=== PATIENT | female | born 1960 | race African-American/Black ===

== ENCOUNTER 2024-04-26 11:59 | Emergency (ER) | payer SELFPAY ==
[~2024-04-26] VITALS: Ht 162.6 cm; Wt 95.3 kg
[2024-04-26 12:08] VITALS: O2SAT 98
[2024-04-26] MEDS: HYDROCODONE/ACETAMINOPHEN 5/325MG TABLET PO ONE (13:16)
[2024-04-26] MEDS ORDERED: NAP5EC MT (14:47)
[2024-04-26 15:09] VITALS: BP 138/84; PULSE 68; RESP 16; TEMP 36.66960; O2SAT 98
== END 2024-04-26 15:10 | disposition home or self-care (01) ==
LOC: ER 13:01
DX: R51.9 Headache, unspecified (principal); R07.89 Other chest pain; M54.2 Cervicalgia; K59.00 Constipation, unspecified; Z87.440 Personal history of urinary (tract) infections; V49.49XA Driver injured in collision with other motor vehicles in traffic accident, initial encounter; Y93.89 Activity, other specified; Y92.89 Other specified places as the place of occurrence of the external cause; Y99.8 Other external cause status
CPT/HCPCS: 71250; 73590; 99284